=== PATIENT | female | born 1985 | race Caucasian/White ===

== ENCOUNTER 2017-11-11 20:41 | Inpatient (IN) | payer OTHER ==
[~2017-11-11] VITALS: Ht 180.3 cm; Wt 87.5 kg
[2017-11-11] MEDS ORDERED: MERANA (20:52)
[2017-11-11 22:26] LABS: BASOPHILS ABSOLUTE AUTO 0.05 K/mm3 (0.00-0.23); BASOPHILS PERCENT AUTO 0 % (0-2); EOSINOPHILS ABSOLUTE AUTO 0.04 K/mm3 (0.00-0.68); EOSINOPHILS PERCENT AUTO 0 % (0-6); Hematocrit 40.9 % (33.0-51.0); Hemoglobin 13.2 g/dL (11.5-16.0); IMMATURE GRAN ABSOLUTE AUTO 0.09 K/mm3 (0.00-0.10); IMMATURE GRAN PERCENT AUTO 1 % (0-1); LYMPHOCYTES PERCENT AUTO 12 % (21-46); MONOCYTES ABSOLUTE AUTO 1.34 K/mm3 (0.16-1.47); MONOCYTES PERCENT AUTO 8 % (4-13); Mean Corpuscular HGB 29.9 pg (26.0-34.0); Mean Corpuscular HGB Conc 32.3 g/dL (31.5-36.5); Mean Corpuscular Volume 93 fL (80-100); Mean Platelet Volume 8.3 fL (9.1-12.4); NEUTROPHILS PERCENT AUTO 79 % (41-73); Platelet Count 220 K/mm3 (150-400); RDW Coefficient Variation 13.2 % (11.7-14.2); Red Blood Cell Count 4.42 M/mm3 (3.80-5.20); White Blood Cell Count 15.92 K/mm3 (4.00-11.30)
[2017-11-11 22:47] LABS: Alanine Aminotransfer (ALT/SGP 23 U/L (12-78); Albumin, Blood 3.6 g/dL (3.4-5.0); Albumin/Globulin Ratio 0.9 (0.8-1.8); Alk Phos 90 U/L (50-136); Anion Gap 8 mmol/L (6-16); Aspartate Aminotrans (AST/SGOT 16 U/L (12-37); Bilirubin, Total 0.7 mg/dL (0.1-1.0); Blood Urea Nitrogen 6 mg/dL (8-24); Bun/Creatinine Ratio 7.5 (12.0-20.0); CO2, Blood 27 mmol/L (21-32); Calcium, Blood 8.8 mg/dL (8.5-10.1); Chloride, Blood 101 mmol/L (98-108); Globulin, Blood 4.2 g/dL (2.2-4.0); Glomerular Filtration Rate >60 (60-); Glucose, Blood 92 mg/dL (70-99); Potassium, Blood 3.4 mmol/L (3.5-5.5); Sodium, Blood 136 mmol/L (136-145); Total Protein, Blood 7.8 g/dL (6.4-8.2)
[2017-11-12 00:38] LABS: Source, Urine Voided
[2017-11-12 00:42] LABS: Bilirubin, Urine Neg (Neg); Blood, Urine 3+ (Neg); Glucose Qualitative, Urine Neg (Neg); Ketones, Urine Neg (Neg); Leukocyte Esterase, Urine 1+ (Neg); Nitrite, Urine Pos (Neg); Protein, Urine Neg (Neg); Urobilinogen, Urine NORM (Normal)
[2017-11-12 01:02] LABS: Appearance, Urine Clear (Clear); Color, Urine Yellow (P-Yellow)
[2017-11-12 01:04] LABS: Bacteria Many /hpf; Squamous Epithelial Cells Rare /hpf (Few)
[2017-11-13 07:22] LABS: Vancomycin, Trough 13.8 ug/mL (5.0-10.0)
[2017-11-13] MEDS ORDERED: Tylenol325 MG PO (13:32)
[2017-11-13] MEDS ORDERED: HIBICLENS120 ML (13:37)
[2017-11-13] MEDS ORDERED: Sulfamethoxazo1 EAC4 PO (13:39)
== END 2017-11-13 14:00 | disposition home or self-care (01) | DRG 872 ==
LOC: ER 20:41 → PCU 23:13 → MEDS 11-12 14:27
PROVIDERS: Family Medicine; Physician Assistant
DX: A41.9 Sepsis, unspecified organism (principal); L03.116 Cellulitis of left lower limb; F19.20 Other psychoactive substance dependence, uncomplicated; E87.6 Hypokalemia; F17.200 Nicotine dependence, unspecified, uncomplicated; Z88.0 Allergy status to penicillin; Z86.14 Personal history of Methicillin resistant Staphylococcus aureus infection
CPT/HCPCS: 36415; 80053; 80202; 81001; 83605; 85025; 87040; 87070; 87075; 87077; 87086; 87147; 87186; 87205; 96361; 96365; 99285; J0696; J1650; J3370; J3480; J7030; J7050

== ENCOUNTER 2018-01-01 11:53 | Emergency (ER) | payer OTHER ==
[~2018-01-01] VITALS: Ht 177.8 cm; Wt 81.7 kg
[~2018-01-01 11:53] MED LIST: HIBICLENS120 ML; MERANA; Sulfamethoxazo1 EAC4 PO; Tylenol325 MG PO
[2018-01-01] MEDS ORDERED: Cleocin HCl300 MG PO (12:32)
== END 2018-01-01 12:35 | disposition home or self-care (01) ==
LOC: ER 11:53
DX: K04.7 Periapical abscess without sinus (principal); Z88.0 Allergy status to penicillin; F17.200 Nicotine dependence, unspecified, uncomplicated
CPT/HCPCS: 99282

== ENCOUNTER 2018-12-07 07:56 | Emergency (ER) | payer OTHER ==
[~2018-12-07] VITALS: Ht 177.8 cm; Wt 86.2 kg
[~2018-12-07 07:56] MED LIST changes: +Cleocin HCl300 MG PO
[2018-12-07] MEDS ORDERED: Bactrim Ds Tab1 EACH PO (08:17)
[2018-12-07] MEDS ORDERED: CEPH500 PO (08:17)
== END 2018-12-07 08:32 | disposition home or self-care (01) ==
LOC: ER 07:56
DX: L03.115 Cellulitis of right lower limb (principal); Z88.0 Allergy status to penicillin; Z79.899 Other long term (current) drug therapy; F17.210 Nicotine dependence, cigarettes, uncomplicated
CPT/HCPCS: 99283

== ENCOUNTER 2019-01-07 22:21 | Emergency (ER) | payer OTHER ==
[~2019-01-07] VITALS: Ht 180.3 cm; Wt 83.9 kg
[~2019-01-07 22:21] MED LIST changes: +Bactrim Ds Tab1 EACH PO; +CEPH500 PO
[2019-01-08 01:15] LABS: Influenza A Negative (NEGATIVE); Influenza B Negative (NEGATIVE)
[2019-01-08] MEDS ORDERED: Prednisone20 MG PO (01:22)
== END 2019-01-08 01:36 | disposition home or self-care (01) ==
LOC: ER 22:21
PROVIDERS: Emergency Medicine
DX: J06.9 Acute upper respiratory infection, unspecified (principal); R06.02 Shortness of breath; Z88.0 Allergy status to penicillin; Z79.52 Long term (current) use of systemic steroids; F17.210 Nicotine dependence, cigarettes, uncomplicated
CPT/HCPCS: 71046; 87804; 94640; 96372; 99283-25; J1885

== ENCOUNTER 2019-09-04 18:22 | Emergency (ER) | payer OTHER ==
[~2019-09-04] VITALS: Ht 177.8 cm; Wt 83.9 kg
[~2019-09-04 18:22] MED LIST changes: +Prednisone20 MG PO; +Zithromax250 MG PO
[2019-09-04 19:33] LABS: Source, Urine Clean Catch
[2019-09-04 19:35] LABS: Appearance, Urine Cloudy (Clear); Bilirubin, Urine Neg (Neg); Blood, Urine 5+ (Neg); Color, Urine Yellow (P-Yellow); Glucose Qualitative, Urine Neg (Neg); Ketones, Urine Neg (Neg); Leukocyte Esterase, Urine 3+ (Neg); Nitrite, Urine Neg (Neg); Protein, Urine 4+ (Neg); Urobilinogen, Urine NORM (Normal)
[2019-09-04 19:43] LABS: Red Blood Cells, Urine 25-50 /hpf (0-2); White Blood Cells, Urine TNTC /hpf (0-5)
[2019-09-04 19:44] LABS: Bacteria Many /hpf; Squamous Epithelial Cells Not Seen /hpf (Few)
[2019-09-04 20:44] LABS: BASOPHILS ABSOLUTE AUTO 0.11 K/mm3 (0.00-0.23); BASOPHILS PERCENT AUTO 1 % (0-2); EOSINOPHILS ABSOLUTE AUTO 1.09 K/mm3 (0.00-0.68); EOSINOPHILS PERCENT AUTO 8 % (0-6); Hematocrit 42.8 % (33.0-51.0); Hemoglobin 13.9 g/dL (11.5-16.0); IMMATURE GRAN ABSOLUTE AUTO 0.06 K/mm3 (0.00-0.10); IMMATURE GRAN PERCENT AUTO 0 % (0-1); LYMPHOCYTES ABSOLUTE AUTO 2.78 K/mm3 (0.84-5.20); LYMPHOCYTES PERCENT AUTO 20 % (21-46); MONOCYTES PERCENT AUTO 6 % (4-13); Mean Corpuscular HGB 31.4 pg (26.0-34.0); Mean Corpuscular HGB Conc 32.5 g/dL (31.5-36.5); Mean Corpuscular Volume 97 fL (80-100); Mean Platelet Volume 8.5 fL (9.1-12.4); NEUTROPHILS ABSOLUTE AUTO 9.33 K/mm3 (1.96-9.15); NEUTROPHILS PERCENT AUTO 65 % (41-73); Platelet Count 280 K/mm3 (150-400); RDW Coefficient Variation 12.2 % (11.7-14.2); RDW Standard Deviation 43.2 fL (35.1-46.3); Red Blood Cell Count 4.43 M/mm3 (3.80-5.20); White Blood Cell Count 14.27 K/mm3 (4.00-11.30)
[2019-09-04 21:07] LABS: Alanine Aminotransfer (ALT/SGP 56 U/L (12-78); Albumin, Blood 3.4 g/dL (3.4-5.0); Albumin/Globulin Ratio 0.8 (0.8-1.8); Alk Phos 148 U/L (50-136); Anion Gap 4 mmol/L (6-16); Aspartate Aminotrans (AST/SGOT 22 U/L (12-37); Bilirubin, Total 0.4 mg/dL (0.1-1.0); Blood Urea Nitrogen 14 mg/dL (8-24); Bun/Creatinine Ratio 17.8 (12.0-20.0); CO2, Blood 29 mmol/L (21-32); Calcium, Blood 8.8 mg/dL (8.5-10.1); Chloride, Blood 104 mmol/L (98-108); Creatinine, Blood 0.79 mg/dL (0.40-1.00); Globulin, Blood 4.1 g/dL (2.2-4.0); Glomerular Filtration Rate >60 (60-); Glucose, Blood 130 mg/dL (70-99); Potassium, Blood 4.3 mmol/L (3.5-5.5); Sodium, Blood 137 mmol/L (136-145); Total Protein, Blood 7.5 g/dL (6.4-8.2)
[2019-09-04] MEDS ORDERED: Keflex500 MG PO (22:43)
== END 2019-09-04 22:48 | disposition home or self-care (01) ==
LOC: ER 18:22
PROVIDERS: Physician Assistant
DX: N39.0 Urinary tract infection, site not specified (principal); R06.2 Wheezing; D72.829 Elevated white blood cell count, unspecified; F17.210 Nicotine dependence, cigarettes, uncomplicated; Z88.0 Allergy status to penicillin
CPT/HCPCS: 36415; 74177; 80053; 81001; 81025; 83690; 85025; 87077; 87086; 87186; 94640; 96361; 96365-59; 96375; 99284-25; J0696; J1885; J2405; J7030; Q9967

== ENCOUNTER 2019-09-13 19:12 | Emergency (ER) | payer OTHER ==
[~2019-09-13] VITALS: Ht 177.8 cm; Wt 83.9 kg
[~2019-09-13 19:12] MED LIST changes: +Keflex500 MG PO
[2019-09-13] MEDS ORDERED: CEFP200 PO (20:47)
== END 2019-09-13 21:21 | disposition home or self-care (01) ==
LOC: ER 19:12
DX: J18.9 Pneumonia, unspecified organism (principal); F17.210 Nicotine dependence, cigarettes, uncomplicated; Z88.0 Allergy status to penicillin
CPT/HCPCS: 71046; 94640; 99283-25; A9270-GY

== ENCOUNTER 2019-11-17 11:43 | Emergency (ER) | payer OTHER ==
[~2019-11-17] VITALS: Ht 177.8 cm; Wt 81.7 kg
[~2019-11-17 11:43] MED LIST changes: +CEFP200 PO
[2019-11-17] MEDS ORDERED: Monodox100 MG PO (13:05)
== END 2019-11-17 13:16 | disposition home or self-care (01) ==
LOC: ER 11:43
DX: L02.01 Cutaneous abscess of face (principal); L03.211 Cellulitis of face; Z88.0 Allergy status to penicillin; F17.210 Nicotine dependence, cigarettes, uncomplicated
CPT/HCPCS: 99283

== ENCOUNTER 2020-02-07 16:57 | Emergency (ER) | payer OTHER ==
[~2020-02-07] VITALS: Ht 177.8 cm; Wt 86.2 kg
[~2020-02-07 16:57] MED LIST changes: +Monodox100 MG PO
[2020-02-07] MEDS ORDERED: Cleocin HCl300 MG PO (17:41)
== END 2020-02-07 17:44 | disposition home or self-care (01) ==
LOC: ER 16:57
DX: K04.7 Periapical abscess without sinus (principal); K02.9 Dental caries, unspecified; F17.210 Nicotine dependence, cigarettes, uncomplicated; Z88.0 Allergy status to penicillin
CPT/HCPCS: 41800; 99283-25

== ENCOUNTER 2020-10-13 22:01 | Emergency (ER) | payer OTHER ==
[~2020-10-13] VITALS: Ht 177.8 cm; Wt 83.9 kg
[2020-10-13] MEDS ORDERED: Cleocin HCl300 MG PO (23:59)
== END 2020-10-14 00:25 | disposition home or self-care (01) ==
LOC: ER 22:01
DX: H05.012 Cellulitis of left orbit (principal); F17.210 Nicotine dependence, cigarettes, uncomplicated; Z88.0 Allergy status to penicillin
CPT/HCPCS: 70487; 96365-59; 96375-59; 99283-25; J1885; J7030; Q9967

== ENCOUNTER 2020-10-15 19:11 | Emergency (ER) | payer OTHER ==
[~2020-10-15] VITALS: Ht 177.8 cm; Wt 83.9 kg
== END 2020-10-15 22:10 | disposition home or self-care (01) ==
LOC: ER 19:11
DX: H00.036 Abscess of eyelid left eye, unspecified eyelid (principal); F17.210 Nicotine dependence, cigarettes, uncomplicated; Z88.0 Allergy status to penicillin
CPT/HCPCS: 10060; 99283-25

== ENCOUNTER 2023-10-22 19:05 | Emergency (ER) | payer OTHER ==
[~2023-10-22] VITALS: Ht 177.8 cm; Wt 81.7 kg
[2023-10-22 19:10] VITALS: BP 146/73
== END 2023-10-22 22:10 | disposition left against medical advice (07) ==
LOC: ER 19:05
DX: L02.01 Cutaneous abscess of face (principal); Z53.21 Procedure and treatment not carried out due to patient leaving prior to being seen by health care provider
CPT/HCPCS: 99282